=== PATIENT | female | born 1960 | race Caucasian/White ===

== ENCOUNTER 2016-05-04 17:50 | Emergency (ER) | payer OTHER ==
[~2016-05-04] VITALS: Ht 157.5 cm; Wt 61.2 kg
[2016-05-04 19:09] VITALS: BP 157/90
== END 2016-05-05 01:13 | disposition left against medical advice (07) ==
LOC: ER 17:57
DX: Z53.21 Procedure and treatment not carried out due to patient leaving prior to being seen by health care provider (principal)
CPT/HCPCS: A4606; Z7610